=== PATIENT | male | born 1955 | race Caucasian/White ===

== ENCOUNTER 2017-11-24 06:14 | Day surgery (SDC) | payer OTHER ==
[2017-11-19 11:34] VITALS: BMI 24.7
[~2017-11-24 06:14] MED LIST: ACETAMINOPHEN 325 MG TABLET (FP) PO PRN; CHONDROITIN SU A/HYALUR SOD 1 KIT IO ONE; TETRACAINE 0.5% OPHTH SOLN 2 ML BOTTLE OS ONE
[2017-11-24] MEDS ORDERED: FLURBIPROFEN 0.03% OPHTH SOLN 2.5 ML BOTTLE ONE (06:38)
[2017-11-24] MEDS ORDERED: CYCLOPENTOLATE HCL 1% OPHTH SOLN 2 ML BOTTLE ONE (06:39)
[2017-11-24] MEDS ORDERED: CIPROFLOXACIN 0.3% EYE DROPS 5 ML BOTTLE ONE (06:39)
[2017-11-24] MEDS ORDERED: TROPICAMIDE 1% OPHTH SOLN 15 ML BOTTLE ONE (06:39)
[2017-11-24] MEDS ORDERED: PHENYLEPHRINE 2.5% OPHTH SOLN 15 ML BOTTLE ONE (06:39)
[2017-11-24 06:54] VITALS: TEMP 97.7
[2017-11-24] MEDS: PHENYLEPHRINE 2.5% OPHTH SOLN 15 ML BOTTLE OP SCH ×2 (06:55→07:08)
[2017-11-24] MEDS: CIPROFLOXACIN HCL 0.3% OPHTH 2.5ML BOTTLE OP SCH ×2 (06:55→07:08)
[2017-11-24] MEDS: CYCLOPENTOLATE HCL 1% OPHTH SOLN 2 ML BOTTLE OP SCH ×2 (06:55→07:08)
[2017-11-24] MEDS: FLURBIPROFEN 0.03% OPHTH SOLN 2.5 ML BOTTLE OP SCH ×2 (06:55→07:08)
[2017-11-24] MEDS: TROPICAMIDE 1% OPHTH SOLN 15 ML BOTTLE OP SCH ×2 (06:55→07:08)
[2017-11-24] MEDS ORDERED: LIDOCAINE HCL/PF 1% SDV 5ML VIAL ONE (07:22)
[2017-11-24] MEDS ORDERED: VANCOMYCIN 500 MG VIAL (RESTRICTED TO ID ONLY) ONE (07:22)
[2017-11-24] MEDS ORDERED: EPINEPHrine/PF 1 MG/1 ML (1:1,000) AMPULE ONE (07:22)
[2017-11-24] MEDS ORDERED: TETRACAINE 0.5% OPHTH SOLN 2 ML BOTTLE ONE (07:23)
[2017-11-24] MEDS ORDERED: POVIDONE-IODINE 5% OPHTHALMIC PREP 30 ML SOLUTION ONE (07:23)
[2017-11-24] MEDS ORDERED: BSS (NA/CA/MG/K) BALANCED SALT SOLUTION OPHTH SOLN 15 ML BOTTLE ONE (07:23)
[2017-11-24] MEDS ORDERED: WATER FOR INJ,STERILE 10 ML ONE (07:23)
[2017-11-24] MEDS ORDERED: MIDAZOLAM HCL 2 MG/2 ML SINGLE DOSE VIAL ONE (08:01)
[2017-11-24] MEDS ORDERED: TETRACAINE 0.5% OPHTH SOLN 2 ML BOTTLE OS ONE (08:06)
[2017-11-24] MEDS ORDERED: LIDOCAINE HCL 1% PRESERVATIVE FREE - 30ML VIAL IO ONE (08:19)
[2017-11-24] MEDS ORDERED: CHONDROITIN SU A/HYALUR SOD 1 KIT IO ONE (08:20)
--- NOTE | 2017-11-24 09:08 | OP ---
DATE OF OPERATION: DATE OF DICTATION: 11/24/2017 OPERATION: Phacoemulsification of left cataract with posterior chamber intraocular lens implantation. Lens used: SN60WF, 21.5 diopter power, serial no. [id number]. PREOPERATIVE DIAGNOSIS: Cataract, left eye. POSTOPERATIVE DIAGNOSIS: Cataract, left eye. SURGEON: Rhea Napier M.D. ANESTHESIA: Topical MAC. COMPLICATIONS: None. PROCEDURE: The patient was brought to the operating room and correctly identified along with the operative site and the correct intraocular lens power. The patient was then prepped and draped in the usual sterile fashion including 5% Betadine solution in the conjunctival sac and an eyelid drape. An eyelid speculum was then placed in the eye. A paracentesis port was created and approximately 0.5 mL of preservative-free lidocaine was then injected into the eye. Viscoelastic was then injected to inflate the anterior chamber. A temporal clear corneal wound was created. A continuous circular capsulorrhexis was performed. The nucleus was then hydrodissected with BSS and removed with phacoemulsification. The remaining cortical material was irrigated and aspirated. Viscoelastic was injected to inflate the capsular bag and the intraocular lens was then implanted into the capsular bag. The remaining Viscoelastic was irrigated and aspirated from the eye. The IOL was noted to be well centered and completely covered by the anterior capsulorrhexis. Topical vancomycin was placed and the eye patched and shielded. All wounds were tested and found to be watertight. No suture was placed. The eye was then shielded. The patient was then discharged from the operating room in stable condition. RHEA NAPIER M.D. [id number]
[2017-11-24 14:19] VITALS: BP 107/44; PULSE 59
== END 2017-11-24 10:00 | disposition home or self-care (01) ==
LOC: JASU-SURG 06:14
PROVIDERS: ATTEND Ophthalmology
PROC: 08RK3JZ Replacement of Left Lens with Synthetic Substitute, Percutaneous Approach (ICD-10-PCS; principal; 2017-11-24 09:00)
DX: H26.9 Unspecified cataract (principal)

== ENCOUNTER 2018-10-26 06:18 | Day surgery (SDC) | payer OTHER ==
[2018-10-25 08:03] VITALS: BMI 26.0
[~2018-10-26 06:18] MED LIST changes: -CHONDROITIN SU A/HYALUR SOD 1 KIT IO ONE; -TETRACAINE 0.5% OPHTH SOLN 2 ML BOTTLE OS ONE
[2018-10-26] MEDS ORDERED: OFLOXACIN 0.3% OPHTHALMIC SOLUTION 5 ML BOTTLE ONE (06:35)
[2018-10-26] MEDS ORDERED: TROPICAMIDE 1% OPHTH SOLN 15 ML BOTTLE ONE (06:36)
[2018-10-26] MEDS ORDERED: KETOROLAC TROMETHAMINE 0.5% EYE DROP 1 DROP DROPS ONE (06:36)
[2018-10-26] MEDS ORDERED: PHENYLEPHRINE 2.5% OPHTH SOLN 15 ML BOTTLE ONE (06:36)
[2018-10-26] MEDS ORDERED: CYCLOPENTOLATE HCL 1% OPHTH SOLN 2 ML BOTTLE ONE (06:36)
[2018-10-26] MEDS: OFLOXACIN 0.3% OPHTHALMIC SOLUTION 5 ML BOTTLE OP SCH ×3 (06:55→07:11)
[2018-10-26] MEDS: PHENYLEPHRINE 2.5% OPHTH SOLN 15 ML BOTTLE OP SCH ×3 (06:55→07:10)
[2018-10-26] MEDS: TROPICAMIDE 1% OPHTH SOLN 15 ML BOTTLE OP SCH ×3 (06:55→07:10)
[2018-10-26] MEDS: KETOROLAC TROMETHAMINE 0.5% EYE DROP 1 DROP DROPS OP SCH ×3 (06:55→07:11)
[2018-10-26] MEDS: CYCLOPENTOLATE HCL 1% OPHTH SOLN 2 ML BOTTLE OP SCH ×3 (06:55→07:11)
[2018-10-26] MEDS ORDERED: CHONDROITIN SU A/HYALUR SOD 1 KIT ONE (07:11)
[2018-10-26] MEDS ORDERED: POVIDONE-IODINE 5% OPHTHALMIC PREP 30 ML SOLUTION ONE (07:25)
[2018-10-26] MEDS ORDERED: LIDOCAINE HCL/PF 1% SDV 5ML VIAL ONE (07:25)
[2018-10-26] MEDS ORDERED: WATER FOR INJ,STERILE 10 ML ONE (07:25)
[2018-10-26] MEDS ORDERED: PROPOFOL 20 ML ONE (07:41)
[2018-10-26] MEDS ORDERED: MIDAZOLAM HCL 2 MG/2 ML SINGLE DOSE VIAL ONE (07:41)
[2018-10-26] MEDS ORDERED: TETRACAINE 0.5% OPHTH SOLN 2 ML BOTTLE TP ONE (08:01)
[2018-10-26] MEDS ORDERED: POVIDONE-IODINE 5% OPHTHALMIC PREP 30 ML SOLUTION OD ONE (08:03)
[2018-10-26] MEDS ORDERED: LIDOCAINE HCL 1% PRESERVATIVE FREE - 30ML VIAL IO ONE (08:11)
[2018-10-26] MEDS ORDERED: BSS (NA/CA/MG/K) BALANCED SALT SOLUTION OPHTH SOLN 15 ML BOTTLE OD ONE (08:11)
[2018-10-26] MEDS ORDERED: CHONDROITIN SU A/HYALUR SOD 1 KIT IO ONE (08:11)
[2018-10-26] MEDS ORDERED: EPINEPHrine/PF 1 MG/1 ML (1:1,000) AMPULE SQ ONE (08:17)
--- NOTE | 2018-10-26 10:17 | SPEC ---
DATE OF OPERATION: OPERATION: Phacoemulsification of right cataract with posterior chamber intraocular lens implantation, right eye. Lens used SN60WF, 21.5 diopter power, serial no. [id number]. PREOPERATIVE DIAGNOSIS: Cataract, right eye. POSTOPERATIVE DIAGNOSIS: Cataract, right eye. SURGEON: Rhea Napier M.D. ANESTHESIA: Topical MAC. COMPLICATIONS: None. PROCEDURE: The patient was brought to the operating room and correctly identified along with the operative site and the correct intraocular lens cook. The patient was then prepped and draped in the usual sterile fashion including 5% Betadine solution in the conjunctival sac and an eyelid drape. An eyelid speculum was then placed in the eye. A paracentesis port was created and approximately 0.5 mL of preservative-free lidocaine was then injected into the eye. Viscoelastic was then injected to inflate the anterior chamber. A temporal clear corneal wound was created. A continuous circular capsulorrhexis was performed. The nucleus was then hydrodissected with BSS and removed with phacoemulsification. The remaining cortical material was irrigated and aspirated. Viscoelastic was injected to inflate the capsular bag and the intraocular lens was then implanted into the capsular bag. The remaining viscoelastic was irrigated and aspirated from the eye. The IOL was noted to be well centered and completely covered by the anterior capsulorrhexis. Topical vancomycin was placed and the eye patched and shielded. All wounds were tested and found to be watertight. No suture was placed. The eye was then shielded. The patient was then discharged from the operating room in stable condition. RHEA NAPIER M.D. [id number]
[2018-10-26 15:30] VITALS: BP 140/70; PULSE 56; TEMP 98
== END 2018-10-26 09:45 | disposition home or self-care (01) ==
LOC: JASU-SURG 06:18
PROVIDERS: ATTEND Ophthalmology
PROC: 08RJ3JZ Replacement of Right Lens with Synthetic Substitute, Percutaneous Approach (ICD-10-PCS; principal; 2018-10-26 08:00)
DX: H26.9 Unspecified cataract (principal)
CPT/HCPCS: 82962

== ENCOUNTER 2023-11-09 09:01 | Emergency (ER) | payer OTHER ==
[2023-11-09 09:53] VITALS: TEMP 98.2; BMI 25.8
[2023-11-09 11:13] LABS: EPI CELLS 3 /uL (0-25.1); HYALINE CASTS 0 /uL (0-3.1); PH,URINE >= 9.0 (5.0-8.0); URINE APPEARANCE TURBID; URINE BILIRUBIN NEGATIVE (NEGATIVE); URINE COLOR ORANGE; URINE GLUCOSE (UA) TRACE (NEGATIVE); URINE KETONE NEGATIVE (NEGATIVE); URINE LEUK ESTERASE 3+ (NEGATIVE); URINE NITRITE POSITIVE (NEGATIVE); URINE PROTEIN 3+ (NEGATIVE); URINE RBC 4271 /uL (0-23.9); URINE UROBILINOGEN 0.2 mg/dL (0.2-1.0); URINE WBC 5556 /uL (0-25.8)
[2023-11-09 12:22] LABS: BASO % 0.9 % (0-2.0); EOS % 2.8 % (0-4.5); HEMATOCRIT 29.2 % (35.4-49); HEMOGLOBIN 9.8 GM/dL (11.7-16.9); LYMPH % 7.4 % (8-40); MCH 30.9 pg (25.7-33.7); MCHC 33.7 g/dl (32.0-35.9); MEAN CELL VOLUME 91.6 fl (80-96); MEAN PLT VOLUME 8.2 fl (7.5-11.1); MONO % 5.8 % (3.8-10.2); NEUT % 83.1 % (42.8-82.8); PLATELET COUNT 161 10^3/uL (134-434); RBC 3.19 M/mm3 (4.00-5.60); RDW 16.2 % (11.9-15.9); WHITE BLOOD COUNT 7.9 K/mm3 (4.0-10.0)
[2023-11-09 12:28] LABS: INR 1.24 (0.83-1.09); PROTHROMBIN TIME (PATIENT) 14.3 SEC (9.7-13.0)
[2023-11-09 12:30] LABS: ACTIVATED PTT 31.9 SECONDS (25.2-36.5)
[2023-11-09 12:47] LABS: CHLORIDE 100 mmol/L (98-107); POTASSIUM 5.4 mmol/L (3.5-5.1); SODIUM 137 mmol/L (136-145)
[2023-11-09 12:49] LABS: ALBUMIN 3.3 g/dl (3.4-5.0); ANION GAP 12 mmol/L (4-13); BLOOD UREA NITROGEN 86.2 mg/dL (7-18); CALCIUM 8.9 mg/dL (8.5-10.1); CO2 25 mmol/L (21-32); GLUCOSE,RANDOM 145 mg/dL (74-106)
[2023-11-09 12:50] LABS: MAGNESIUM 2.6 mg/dL (1.8-2.4)
[2023-11-09 12:52] LABS: PHOSPHOROUS 3.3 mg/dL (2.5-4.9); SGOT/AST 10 U/L (15-37); SGPT/ALT 9 U/L (13-61)
[2023-11-09 12:54] LABS: BILIRUBIN,TOTAL 0.5 mg/dL (0.2-1); TOT PROT 6.8 g/dl (6.4-8.2)
[2023-11-09 12:55] LABS: ALK PHOS 100 U/L (45-117)
[2023-11-09 12:59] LABS: CREATININE 11.6 mg/dL (0.55-1.3)
[2023-11-09] MEDS ORDERED: CEFTRIAXONE 1,000 MG in DEXTROSE 5%-WATER - 50 ML IVPB ONE (13:09)
[2023-11-09] MEDS ORDERED: CEFTRIAXONE 1 GM/50 ML BAG ONE (13:42)
[2023-11-09] MEDS ORDERED: ACETAMINOPHEN 325 MG TABLET (FP) PO ONE (14:02)
[2023-11-09] MEDS ORDERED: ACETAMINOPHEN 325 MG TABLET (FP) ONE (14:31)
[2023-11-09 14:42] VITALS: BP 204/68; PULSE 71; RESP 16
== END 2023-11-09 14:45 | disposition home or self-care (01) ==
LOC: JER 09:01
DX: R31.9 Hematuria, unspecified (principal); N30.90 Cystitis, unspecified without hematuria
CPT/HCPCS: 36415; 80053; 81003; 82962; 83735; 84100; 85025; 85610; 85730; 86850; 86900; 86901; 87086; 93005; 93010; 99285-25

== ENCOUNTER 2025-05-07 19:46 | Inpatient (IN) | payer OTHER ==
[2025-05-07] MEDS ORDERED: FAMOTIDINE 20 MG/50 ML IVPB 20 MG/50 ML MG IVPB ONE (20:15)
[2025-05-07 20:25] LABS: ABSOLUTE IMMATURE GRANULOCYTES 0.01 x10^3/uL (0.0-0.031); EOSINOPHILS # 0.35 x10^3/uL (0.04-0.54); HEMOGLOBIN 14.2 g/dL (13.7-17.5); MCHC 34.5 g/dl (32.3-36.5); RDW 15.5 % (12.2-16.4)
[2025-05-07 20:27] LABS: BASOPHILS # 0.04 x10^3/uL (0.01-0.08); EOSINOPHIL % 9.7 % (0.8-7.0); HEMATOCRIT 41.1 % (40.1-51.0); MEAN CELL VOLUME 95.1 fl (79.0-92.2); MEAN PLT VOLUME 12.9 fl (9.4-12.4); MONOCYTE # 0.39 x10^3/uL (0.30-0.82); MONOCYTE % 10.8 % (5.3-12.2); PLATELET COUNT 66 x10^3/uL (163-337)
[2025-05-07] MEDS: FAMOTIDINE 20 MG/50 ML IVPB 20 MG/50 ML MG IVPB ONE (20:32)
[2025-05-07 20:57] LABS: CHLORIDE 97 mmol/L (98-107); SODIUM 126 mmol/L (136-145)
[2025-05-07 20:59] LABS: CALCIUM 9.2 mg/dL (8.5-10.1)
[2025-05-07 21:00] LABS: ALBUMIN 4.3 g/dl (3.4-5.0); BLOOD UREA NITROGEN 68.8 mg/dL (7-18); CO2 18 mmol/L (21-32); GLUCOSE,RANDOM 116 mg/dL (74-106); MAGNESIUM 2.6 mg/dL (1.8-2.4)
[2025-05-07 21:02] LABS: ANION GAP 11 mmol/L (4-13); POTASSIUM 6.6 mmol/L (3.5-5.1)
[2025-05-07 21:03] LABS: SGOT/AST 18 U/L (15-37); SGPT/ALT 19 U/L (13-61)
[2025-05-07 21:04] LABS: BILIRUBIN,TOTAL 0.6 mg/dL (0.2-1); TOT PROT 7.6 g/dl (6.4-8.2)
[2025-05-07 21:06] LABS: ALK PHOS 117 U/L (45-117)
[2025-05-07] MEDS ORDERED: CALCIUM GLUCONATE 10% - 1,000 MG/10 ML VIAL ONE (21:09)
[2025-05-07] MEDS: chlorproMAZINE HCL 25 MG TABLET PO ONE (21:23)
[2025-05-07] MEDS: CALCIUM GLUCONATE 10% - 1,000 MG/10 ML VIAL IVPB ONE (21:23)
[2025-05-07] MEDS ORDERED: ALBUTEROL SO4 2.5/IPRATROPIUM 0.5 INH SOL 3 ML VIAL.NEB. NEB ONE (21:27)
[2025-05-07] MEDS ORDERED: DEXTROSE 50%-WATER 25 GM/50 ML DISP.SYRIN ONE (21:28)
[2025-05-07] MEDS ORDERED: INSULIN ASPART SLIDING SCALE (NOVOLOG) 1 VIAL SQ ONE (21:29)
[2025-05-07] MEDS: DEXTROSE 50%-WATER 25 GM/50 ML DISP.SYRIN IVPUSH ONE (21:35)
[2025-05-07] MEDS: ALBUTEROL SO4 2.5/IPRATROPIUM 0.5 INH SOL 3 ML VIAL.NEB. NEB SCH (21:35)
[2025-05-07] MEDS: INSULIN (NOVOLOG) ASPART 100 UNITS/ML 10ML VIAL SQ ONE (21:35)
[2025-05-07] MEDS ORDERED: SODIUM ZIRCONIUM CYCLOSILICATE (LOKELMA) 10 GM PACKET ONE (22:04)
[2025-05-07] MEDS: SODIUM ZIRCONIUM CYCLOSILICATE (LOKELMA) 5 GM PACKET PO SCH (22:44)
[2025-05-07 23:47] LABS: CHLORIDE 96 mmol/L (98-107); CHLORIDE 97 mmol/L (98-107); SODIUM 124 mmol/L (136-145); SODIUM 126 mmol/L (136-145)
[2025-05-07 23:48] LABS: POTASSIUM 6.4 mmol/L (3.5-5.1); POTASSIUM 6.7 mmol/L (3.5-5.1)
[2025-05-07 23:49] LABS: ALBUMIN 3.9 g/dl (3.4-5.0); ANION GAP 15 mmol/L (4-13); BLOOD UREA NITROGEN 70.2 mg/dL (7-18); CALCIUM 8.5 mg/dL (8.5-10.1); CO2 14 mmol/L (21-32)
[2025-05-07 23:50] LABS: ANION GAP 13 mmol/L (4-13); BLOOD UREA NITROGEN 71.6 mg/dL (7-18); CO2 14 mmol/L (21-32); GLUCOSE,RANDOM 150 mg/dL (74-106); GLUCOSE,RANDOM 154 mg/dL (74-106)
[2025-05-07 23:52] LABS: SGPT/ALT 18 U/L (13-61)
[2025-05-07 23:53] LABS: SGOT/AST 18 U/L (15-37)
[2025-05-07 23:54] LABS: BILIRUBIN,TOTAL 0.5 mg/dL (0.2-1); TOT PROT 6.8 g/dl (6.4-8.2)
[2025-05-07 23:55] LABS: ALK PHOS 104 U/L (45-117)
[2025-05-08] MEDS ORDERED: INSULIN REGULAR HUMAN 100 UNITS/ML *VIAL ONE (00:01)
[2025-05-08 00:02] LABS: CREATININE 8.9 mg/dL (0.55-1.3)
[2025-05-08] MEDS: INSULIN REGULAR HUMAN 100 UNITS/ML *VIAL IVPUSH ONE (00:07)
[2025-05-08] MEDS ORDERED: DEXTROSE 50%-WATER 25 GM/50 ML DISP.SYRIN ONE ×2 (00:08→03:49)
[2025-05-08] MEDS: DEXTROSE 50%-WATER - 25 GM/50 ML VIAL IVPUSH ONE ×2 (00:11→03:53)
[2025-05-08] MEDS ORDERED: NIFEdipine E.R 60 MG TABLET PO ONE (01:41)
[2025-05-08] MEDS ORDERED: hydrALAZINE HCL 50 MG TABLET (FP) ONE (01:41)
[2025-05-08] MEDS: hydrALAZINE HCL 50 MG TABLET (FP) PO ONE (01:44)
[2025-05-08] MEDS: NIFEdipine 10 MG CAPSULE (FP) PO ONE (01:44)
[2025-05-08] MEDS ORDERED: LABETALOL HCL 20 MG/4 ML VIAL ONE (03:27)
[2025-05-08] MEDS: LABETALOL HCL 20 MG/4 ML VIAL IVPUSH ONE (03:31)
[2025-05-08] MEDS: PANTOPRAZOLE 40 MG TABLET PO SCH (06:32)
[2025-05-08 07:06] LABS: CHLORIDE 94 mmol/L (98-107); POTASSIUM 5.6 mmol/L (3.5-5.1); SODIUM 125 mmol/L (136-145)
[2025-05-08 07:15] LABS: CALCIUM 8.6 mg/dL (8.5-10.1)
[2025-05-08 07:16] LABS: ALBUMIN 3.8 g/dl (3.4-5.0); ANION GAP 14 mmol/L (4-13); BLOOD UREA NITROGEN 72.3 mg/dL (7-18); CO2 17 mmol/L (21-32); GLUCOSE,RANDOM 119 mg/dL (74-106)
[2025-05-08 07:18] LABS: ABSOLUTE IMMATURE GRANULOCYTES 0.02 x10^3/uL (0.0-0.031); BASOPHILS # 0.03 x10^3/uL (0.01-0.08); EOSINOPHIL % 6.6 % (0.8-7.0); EOSINOPHILS # 0.28 x10^3/uL (0.04-0.54); HEMATOCRIT 42.2 % (40.1-51.0); HEMOGLOBIN 14.5 g/dL (13.7-17.5); MCHC 34.4 g/dl (32.3-36.5); MEAN CELL VOLUME 94.4 fl (79.0-92.2); MEAN PLT VOLUME 11.8 fl (9.4-12.4); MONOCYTE # 0.42 x10^3/uL (0.30-0.82); MONOCYTE % 9.9 % (5.3-12.2); PLATELET COUNT 67 x10^3/uL (163-337); RDW 15.7 % (12.2-16.4)
[2025-05-08 07:19] LABS: SGOT/AST 18 U/L (15-37); SGPT/ALT 15 U/L (13-61)
[2025-05-08 07:21] LABS: BILIRUBIN,TOTAL 0.5 mg/dL (0.2-1); TOT PROT 6.6 g/dl (6.4-8.2)
[2025-05-08 07:22] LABS: ALK PHOS 97 U/L (45-117)
[2025-05-08 07:43] LABS: CREATININE 9.1 mg/dL (0.55-1.3)
[2025-05-08 08:43] VITALS: BMI 20.9
[2025-05-08] MEDS: CARVEDILOL 12.5 MG TABLET (FP) PO SCH (09:10)
[2025-05-08] MEDS: FINASTERIDE 5 MG TABLET (FP) PO SCH (09:17)
[2025-05-08] MEDS: LOSARTAN POTASSIUM 50 MG TABLET PO SCH (09:18)
[2025-05-08] MEDS: hydrALAZINE HCL 50 MG TABLET (FP) PO SCH (09:18)
[2025-05-08] MEDS: SERTRALINE HCL 25 MG TABLET (FP) PO SCH (09:18)
[2025-05-08] MEDS: LACOSAMIDE 50 MG TABLET PO SCH ×2 (09:18→10:01)
[2025-05-08] MEDS: TAMSULOSIN HCL 0.4 MG CAP PO SCH (09:18)
[2025-05-08] MEDS: BUDESONIDE/FORMETEROL FUMARATE 160/4.5 mcg INHALER IH SCH (10:08)
[2025-05-08] MEDS ORDERED: SODIUM CHLORIDE 250 ML IV PRN (10:12)
[2025-05-08 16:42] LABS: CHOLESTEROL 108 mg/dL (50-200)
[2025-05-08 16:44] LABS: LDL CHOLESTEROL (ONLY SJRH) 47 mg/dL (5-100)
[2025-05-08 16:45] LABS: HDL CHOLESTEROL 58 mg/dL (40-60)
[2025-05-08 17:07] LABS: HEPATITIS B SURF AG NON-MATERN NON-REACTIVE (NONREACTIVE)
[2025-05-08 17:36] LABS: HCV DIAGNOSTIC IN-HOUSE W/RFLX NON-REACTIVE (NONREACTIVE)
[2025-05-08] MEDS: INSULIN ASPART SLIDING SCALE (NOVOLOG) 1 VIAL SQ SCH (18:07)
[2025-05-08] MEDS: EPOETIN ALFA-EPBX 4,000 UNIT/ML VIAL SQ ONE (18:17)
[2025-05-08 19:48] LABS: ARTERIAL BLD GAS O2 SATURATION 98.1 % (95-98); ARTERIAL BLOOD GAS BASE EXCESS -1.4 mmol/L (-2-2); ARTERIAL BLOOD GAS PO2 110.2 mmHg (80-100)
[2025-05-08 19:53] LABS: ALLENS TEST POSITIVE
[2025-05-08 22:06] LABS: HEMATOCRIT 37.5 % (40.1-51.0); HEMOGLOBIN 13.2 g/dL (13.7-17.5); MCHC 35.2 g/dl (32.3-36.5); MEAN CELL VOLUME 92.8 fl (79.0-92.2); MEAN PLT VOLUME 10.8 fl (9.4-12.4); PLATELET COUNT 51 x10^3/uL (163-337); RDW 15.3 % (12.2-16.4)
[2025-05-08 22:09] LABS: INR 1.25 (0.83-1.09); PROTHROMBIN TIME (PATIENT) 13.7 SEC (9.7-13.0)
[2025-05-08 22:29] LABS: POTASSIUM 4.7 mmol/L (3.5-5.1)
[2025-05-08 22:30] LABS: CALCIUM 8.6 mg/dL (8.5-10.1)
[2025-05-08 22:34] LABS: CREATININE 7.3 mg/dL (0.55-1.3)
[2025-05-08] MEDS: ATORVASTATIN CA 40 MG TABLET (FP) PO SCH (22:45)
[2025-05-08 22:47] LABS: BLOOD UREA NITROGEN 45.2 mg/dL (7-18)
[2025-05-08] MEDS: levETIRAcetam 500 MG/5 ML INJECTION VIAL IVPB ONE (22:56)
[2025-05-09 07:34] LABS: ABSOLUTE IMMATURE GRANULOCYTES 0.02 x10^3/uL (0.0-0.031); BASOPHILS # 0.04 x10^3/uL (0.01-0.08); EOSINOPHIL % 1.2 % (0.8-7.0); EOSINOPHILS # 0.07 x10^3/uL (0.04-0.54); HEMATOCRIT 38.2 % (40.1-51.0); HEMOGLOBIN 13.1 g/dL (13.7-17.5); MCHC 34.3 g/dl (32.3-36.5); MEAN CELL VOLUME 94.1 fl (79.0-92.2); MEAN PLT VOLUME 12.2 fl (9.4-12.4); MONOCYTE # 0.41 x10^3/uL (0.30-0.82); PLATELET COUNT 68 x10^3/uL (163-337); RDW 15.8 % (12.2-16.4)
[2025-05-09 07:52] LABS: CHLORIDE 97 mmol/L (98-107); POTASSIUM 4.8 mmol/L (3.5-5.1); SODIUM 132 mmol/L (136-145)
[2025-05-09 07:56] LABS: CALCIUM 8.8 mg/dL (8.5-10.1)
[2025-05-09 07:57] LABS: ALBUMIN 3.7 g/dl (3.4-5.0); ANION GAP 10 mmol/L (4-13); BLOOD UREA NITROGEN 48.2 mg/dL (7-18); CO2 25 mmol/L (21-32)
[2025-05-09 07:58] LABS: GLUCOSE,RANDOM 104 mg/dL (74-106)
[2025-05-09 08:00] LABS: SGOT/AST 15 U/L (15-37); SGPT/ALT 16 U/L (13-61)
[2025-05-09 08:02] LABS: BILIRUBIN,TOTAL 0.6 mg/dL (0.2-1); TOT PROT 6.6 g/dl (6.4-8.2)
[2025-05-09 08:03] LABS: ALK PHOS 91 U/L (45-117)
[2025-05-09 08:05] LABS: CREATININE 8.1 mg/dL (0.55-1.3)
[2025-05-09] MEDS ORDERED: SODIUM CHLORIDE 250 ML IV PRN (11:55)
[2025-05-09] MEDS: DEXTROSE 5%-0.45% SALINE 1,000 ML IV SCH (12:35)
[2025-05-09] MEDS: ACETAMINOPHEN 1000 MG/100 ML BAG IVPB PRN (12:39)
[2025-05-09] MEDS: ONDANSETRON 4 MG/2 ML VIAL IVPUSH ONE (13:04)
[2025-05-09] MEDS: levETIRAcetam 500 MG/5 ML INJECTION VIAL IVPB SCH (22:07)
[2025-05-09 23:33] VITALS: BP 185/64; PULSE 82; RESP 18; TEMP 97.9
[2025-05-10] MEDS: hydrALAZINE HCL 50 MG TABLET (FP) PO ONE (00:45)
== END 2025-05-10 01:40 | disposition short-term general hospital (02) | DRG 438 ==
LOC: JER 19:46 → JERBED 20:49 → J4S 05-08 04:19 → OBSVTOIN 05-09 13:20
PROVIDERS: ADMIT Internal Medicine; ATTEND Internal Medicine
PROC: 30233R1 Transfusion of Nonautologous Platelets into Peripheral Vein, Percutaneous Approach (ICD-10-PCS; principal; 2025-05-09)
DX: K86.89 Other specified diseases of pancreas (principal); N18.6 End stage renal disease; I12.0 Hypertensive chronic kidney disease with stage 5 chronic kidney disease or end stage renal disease; E85.4 Organ-limited amyloidosis; E87.1 Hypo-osmolality and hyponatremia; R06.6 Hiccough; J44.9 Chronic obstructive pulmonary disease, unspecified; I68.0 Cerebral amyloid angiopathy; E11.22 Type 2 diabetes mellitus with diabetic chronic kidney disease; F32.A Depression, unspecified; Z99.2 Dependence on renal dialysis; D69.6 Thrombocytopenia, unspecified; E78.5 Hyperlipidemia, unspecified; K21.9 Gastro-esophageal reflux disease without esophagitis; N40.0 Benign prostatic hyperplasia without lower urinary tract symptoms; E87.5 Hyperkalemia
CPT/HCPCS: 0241U-QW; 36415; 36430; 36600; 70450-TC; 70551-TC; 71045-TC-FY; 71250-TC; 74177-TC; 80048; 80053; 80061; 82803; 82962; 83036; 83735; 84443; 84484; 85025; 85027; 85610; 86704; 86803; 86850; 86900; 86901; 87340; 87517; 93005; 93010; 99285-25; G0378; P9037; P9038; Q9967